=== PATIENT | female | born 1960 ===

== ENCOUNTER 2018-03-11 23:52 | Emergency (ER) | payer SELFPAY ==
[2018-03-12 00:21] VITALS: RESP 18
[2018-03-12] MEDS ORDERED: Sodium Chloride 0.9% 1,000 ML IV STA (00:24)
[2018-03-12] MEDS ORDERED: Albuterol-Ipratrop 3 mg / 0.5 (3 ml) UD INH STA (00:28)
[2018-03-12] MEDS ORDERED: Albuterol-Ipratrop 3 mg / 0.5 (3 ml) UD ONE (00:35)
[2018-03-12 00:54] LABS: BASO # 0.1 K/uL (0.0-0.2); BASO % 0.8 % (0.0-2.0); EOS # 0.3 K/uL (0.0-0.7); EOS % 4.5 % (0.0-4.0); HEMOGLOBIN 13.2 g/dL (12.0-16.0); LYMPH # 1.6 K/uL (1.0-4.3); LYMPH % 22.5 % (20.0-40.0); MEAN CELL VOLUME 81.4 fl (81.0-99.0); MEAN CORPUSCULAR HEMOGLOBIN 27.7 pg (27.0-31.0); MEAN PLATELET VOLUME 7.8 fl (7.2-11.7); MONO # 0.5 K/uL (0.0-0.8); MONO % 7.8 % (0.0-10.0); NEUT # 4.5 K/uL (1.8-7.0); NEUT % 64.4 % (50.0-75.0); NRBC % 0.1 % (0.0-0.0); RBC 4.79 Mil/uL (3.80-5.20); RED CELL DISTRIBUTION WIDTH 15.1 % (11.5-14.5)
[2018-03-12 01:00] LABS: ALBUMIN 4.1 g/dL (3.5-5.0); ALT/SGPT 32 U/L (9-52); AST/SGOT 32 U/L (14-36); BLOOD UREA NITROGEN 11 mg/dl (7-17); CALCIUM 9.1 mg/dL (8.4-10.2); GFR AFRICAN-AMERICAN > 60; GFR NON-AFRICAN AMERICAN > 60
--- NOTE | 2018-03-12 01:30 | ED PDOC ---
HPI: CCC, URI, Sore Throat Time Seen by Provider: 03/12/18 00:11 Chief Complaint (Nursing): Cough, Cold, Congestion Chief Complaint (Provider): Cough, fever History Per: Patient History/Exam Limitations: no limitations Onset/Duration Of Symptoms: Days Current Symptoms Are (Timing): Still Present Additional Complaint(s): 57 yo female with HTN presents with cough x 2 days with fever. Temp 101.2 at home. Motrin at 8pm. Pt reports chest pain when coughing. Past Medical History Reviewed: Historical Data, Nursing Documentation, Vital Signs Vital Signs: Last Vital Signs Temp 97.7 F 03/12/18 00:19 Pulse 91 H 03/12/18 00:19 Resp 18 03/12/18 00:19 BP 140/91 H 03/12/18 00:19 Pulse Ox 98 03/12/18 01:33 - Medical History PMH: HTN - Surgical History Surgical History: Tonsillectomy - Family History Family History: States: No Known Family Hx - Living Arrangements Living Arrangements: With Family - Social History Current smoker - smoking cessation education provided: No - Home Medications Home Medications: Ambulatory Orders Medication Instructions Recorded Azithromycin 250 mg PO DAILY #6 tab 03/12/18 - Allergies Allergies/Adverse Reactions: Allergies Allergy/AdvReac Type Severity Reaction Status Date / Time No Known Allergies Allergy Verified 03/12/18 00:19 Review of Systems ROS Statement: Except As Marked, All Systems Reviewed And Found Negative Constitutional: Negative for: Fever, Chills Respiratory: Positive for: Cough. Negative for: Shortness of Breath Gastrointestinal: Negative for: Nausea, Vomiting Physical Exam - Reviewed Nursing Documentation Reviewed: Yes Vital Signs Reviewed: Yes - Physical Exam Appears: Positive for: Well, Non-toxic, No Acute Distress Head Exam: Positive for: ATRAUMATIC, NORMAL INSPECTION, NORMOCEPHALIC Skin: Positive for: Normal Color, Warm, DRY Eye Exam: Positive for: Normal appearance ENT: Positive for: Normal ENT Inspection Neck: Positive for: Normal, Painless ROM Cardiovascular/Chest: Positive for: Regular Rate, Rhythm Respiratory: Positive for: Normal Breath Sounds. Negative for: Accessory Muscle Use, Respiratory Distress Gastrointestinal/Abdominal: Positive for: Normal Exam, Soft. Negative for: Tenderness Back: Positive for: Normal Inspection Extremity: Positive for: Normal ROM Neurologic/Psych: Positive for: Alert, Oriented - Laboratory Results Result Diagrams: 03/12/18 00:46 03/12/18 00:46 - ECG O2 Sat by Pulse Oximetry: 98 Pulse Ox Interpretation: Normal Medical Decision Making Medical Decision Making: Labs normal. CXR without cute findings. Disposition - Clinical Impression Clinical Impression: Acute bronchitis - Patient ED Disposition Is Patient to be Admitted: No Counseled Patient/Family Regarding: Diagnosis, Need For Followup, Rx Given - Disposition Disposition: Routine/Home Disposition Time: 02:14 Condition: STABLE Prescriptions: Azithromycin 250 mg PO DAILY #6 tab Instructions: Acute Bronchitis Forms: [facility] (Uzbek)
[2018-03-12 03:36] VITALS: BP 147/93; PULSE 83; TEMP 98; O2SAT 100
== END 2018-03-12 02:40 | disposition home or self-care (01) ==
LOC: H.ER 23:52
DX: J20.9 Acute bronchitis, unspecified (principal); I10 Essential (primary) hypertension
CPT/HCPCS: 71046; 80053; 85025; 94640; 96360; 99283; J7030

== ENCOUNTER 2018-12-04 14:42 | Emergency (ER) | payer SELFPAY ==
[2018-12-04 15:05] VITALS: RESP 20; O2SAT 98
--- NOTE | 2018-12-04 16:05 | ED PDOC ---
HPI: General Adult Time Seen by Provider: 12/04/18 16:03 Chief Complaint (Nursing): Chest Pain Chief Complaint (Provider): CP History Per: Patient (57 Y/O FEMALE H/O HTN ON METOPROLOL AND HCTZ HERE WITH COMPLAINT OF ONGOING BACKACHE/ARM PAIN X 1 WEEK. NOTES HEADACHE SINCE YESTERDAY NIGHT AND STATES ARM PAIN WORSENING TODAY WITH INVOLVEMENT TODAY OF LEFT CHEST WALL.) Past Medical History Reviewed: Historical Data, Nursing Documentation, Vital Signs Vital Signs: Last Vital Signs Temp 98.1 F 12/04/18 15:03 Pulse 100 H 12/04/18 15:03 Resp 20 12/04/18 15:03 BP 154/94 H 12/04/18 15:03 Pulse Ox 98 12/04/18 15:03 - Medical History PMH: Bronchitis, GERD, HTN Denies: Chronic Kidney Disease - Surgical History Surgical History: Tonsillectomy - Family History Family History: States: Hypertension - Immunization History Hx Tetanus Toxoid Vaccination: No Hx Influenza Vaccination: No Hx Pneumococcal Vaccination: No - Home Medications Home Medications: Ambulatory Orders Medication Instructions Recorded Amlodipine Besylate [Norvasc] 5 mg PO DAILY 03/21/16 Pantoprazole [Protonix EC Tab] 20 mg PO DAILY #1 ect 07/30/17 Albuterol HFA [Ventolin HFA 90 2 puff IH Q4H #1 puff 10/16/17 mcg/actuation (8 g)] Azithromycin [Zithromax] 250 mg PO DAILY #6 tab 10/16/17 Albuterol Sulfate [Proair Hfa] 0.09 mg IH Q6H PRN #2 inh 11/14/17 Ibuprofen [Motrin] 600 mg PO TID 7 Days tab 11/14/17 predniSONE [predniSONE Tab] 20 mg PO BID 5 Days tab 11/14/17 Azithromycin 250 mg PO DAILY #6 tab 03/12/18 Acetaminophen/Butalbital/Caf 1 - 2 tab PO Q6 PRN #20 tab 09/03/18 [Fioricet] Ibuprofen [Motrin] 600 mg PO Q8 PRN #15 tab 12/04/18 - Allergies Allergies/Adverse Reactions: Allergies Allergy/AdvReac Type Severity Reaction Status Date / Time No Known Allergies Allergy Verified 12/04/18 15:03 Review of Systems ROS Statement: Except As Marked, All Systems Reviewed And Found Negative Cardiovascular: Positive for: Chest Pain Musculoskeletal: Positive for: Arm Pain Physical Exam - Reviewed Nursing Documentation Reviewed: Yes Vital Signs Reviewed: Yes - Physical Exam Appears: Positive for: Well, Non-toxic, No Acute Distress Head Exam: Positive for: ATRAUMATIC, NORMAL INSPECTION, NORMOCEPHALIC Skin: Positive for: Normal Color, Warm, DRY Eye Exam: Positive for: EOMI, Normal appearance, PERRL ENT: Positive for: Normal ENT Inspection Neck: Positive for: Normal, Painless ROM Cardiovascular/Chest: Positive for: Regular Rate, Rhythm. Negative for: Chest Non Tender (CHEST WALL TENDERNESS) Respiratory: Positive for: CNT, Normal Breath Sounds Gastrointestinal/Abdominal: Positive for: Normal Exam, Soft Back: Positive for: Normal Inspection Extremity: Positive for: Normal ROM, Tenderness (LEFT FOREARM/PROXIMAL ARM TENDERNESS.) Neurologic/Psych: Positive for: Alert, Oriented - Laboratory Results Result Diagrams: 12/04/18 16:57 12/04/18 16:57 - ECG O2 Sat by Pulse Oximetry: 98 - Progress ED Course And Treament: KDUR 20 MEQ X 1 DOSE CXR: NAD TORADOL 15 MG IV X 1 DOSE REGLAN 10 MG IV X 1 DOSE NS 1 LITER PATIENT STATES SHE FEELS MUCH BETTER AND WOULD LIKE TO BE DISCHARGED. Disposition - Clinical Impression Clinical Impression: Musculoskeletal chest pain, Muscle strain of upper back - Patient ED Disposition Is Patient to be Admitted: No - Disposition Disposition: Routine/Home Disposition Time: 18:43 Condition: FAIR Prescriptions: Ibuprofen [Motrin] 600 mg PO Q8 PRN #15 tab PRN Reason: Pain, Moderate (4-7) Instructions: Muscle Strain Forms: [facility] School/Work Excuse Print Language: KOREAN
--- NOTE | 2018-12-04 16:25 | RAD ---
Date of service: 12/04/2018 HISTORY: Chest pain COMPARISON: 03/12/2018. FINDINGS: LUNGS: No active pulmonary disease. PLEURA: No significant pleural effusion identified, no pneumothorax apparent. CARDIOVASCULAR: No atherosclerotic calcification present No radiographic findings to suggest acute or significant cardiovascular disease. OSSEOUS STRUCTURES: No significant abnormalities. VISUALIZED UPPER ABDOMEN: Normal. OTHER FINDINGS: None. IMPRESSION: No active disease. No significant interval change compared to the prior examination(s).
[2018-12-04] MEDS: Sodium Chloride 0.9% 1,000 ML IV STA ×2 (16:54)
[2018-12-04 17:35] LABS: BASO % 0.5 % (0.0-2.0); EOS # 0.2 K/uL (0.0-0.7); EOS % 2.7 % (0.0-4.0); HEMOGLOBIN 13.9 g/dL (12.0-16.0); LYMPH # 2.6 K/uL (1.0-4.3); MEAN CELL VOLUME 83.1 fl (81.0-99.0); MEAN CORPUSCULAR HEMOGLOBIN 27.9 pg (27.0-31.0); MEAN CORPUSCULAR HGB CONC 33.6 g/dL (33.0-37.0); MEAN PLATELET VOLUME 8.3 fl (7.2-11.7); MONO # 0.4 K/uL (0.0-0.8); MONO % 5.3 % (0.0-10.0); NEUT # 4.9 K/uL (1.8-7.0); NEUT % 59.5 % (50.0-75.0); NRBC % 0.2 % (0.0-0.0); RBC 4.99 Mil/uL (3.80-5.20); RED CELL DISTRIBUTION WIDTH 14.8 % (11.5-14.5); WHITE BLOOD COUNT 8.2 K/uL (4.8-10.8)
[2018-12-04 18:03] LABS: ALB/GLOB RATIO 0.9 (1.0-2.1); ALBUMIN 4.1 g/dL (3.5-5.0); ALT/SGPT 29 U/L (9-52); AST/SGOT 37 U/L (14-36); BLOOD UREA NITROGEN 15 mg/dl (7-17); CALCIUM 9.6 mg/dL (8.4-10.2); GFR NON-AFRICAN AMERICAN > 60
[2018-12-04] MEDS ORDERED: Potassium Chloride 20 mEq ER Tab PO ONE (18:46)
[2018-12-04] MEDS: Potassium Chloride 20 mEq ER Tab PO ONE (19:42)
[2018-12-04 19:47] VITALS: BP 144/83; PULSE 99; TEMP 98.2
--- NOTE | 2018-12-05 09:06 | CARD ---
APPROVED REPORT Date of service: 12/04/2018 EKG Measurement Heart [id number] <Conclusion> Normal sinus rhythm Normal ECG
== END 2018-12-04 19:46 | disposition home or self-care (01) ==
LOC: H.ER 14:42
DX: R07.89 Other chest pain (principal); I10 Essential (primary) hypertension; K21.9 Gastro-esophageal reflux disease without esophagitis; Z79.899 Other long term (current) drug therapy
CPT/HCPCS: 71045; 80053; 83735; 84484; 85025; 93005; 96361; 96374; 99284; J2765; J7030